=== PATIENT | male | born 1980 | race Caucasian/White ===

== ENCOUNTER 2016-07-30 09:28 | Emergency (ER) | payer BC ==
--- NOTE | 2016-07-30 09:38 | EDM.PDOC ---
<Sherrell Madrigal - Last Filed: 07/30/16 10:24> ED HPI Trauma - General Chief Complaint: Lower Extremity Injury/Pain Stated Complaint: RIGHT ANKLE PAIN Time Seen by Provider: 07/30/16 09:30 - History of Present Illness INITIAL COMMENTS - FREE TEXT/NARRATIVE: This is Dr. Madrigal dictating an addendum note as a supervising physician on this case. I agree with history and physical as above. The patient is awake alert and not exhibiting any signs of intoxication or tremulousness. He does admit that he has been drinking heavily but did not drink this morning. I agree with the physical as above and there is a lot of dependent ecchymosis and diffuse soft tissue swelling in this region of the lateral malleolus. Neurovascular is intact in the proximal fibula and tibia are intact without tenderness. The patient is exhibiting no signs of tremulousness. We will followup the x-ray and treat appropriately. X-rays have been reviewed and were discussed with the patient. You'll receive an orthopod and crutches and recommend strongly to followup in the orthopedics clinic as elevation and pain meds. Impression: Right ankle injury/sprain rule out occult fracture Allergies/ADRs: Allergies No Known Allergies Allergy (Verified 07/30/16 09:30) Home Medications: Ambulatory Orders Hydrocodone/Acetaminophen [[place] 5-325 Tablet] 1 each PO Q4H PRN #30 tablet Ibuprofen 800 mg PO TID #30 tablet 07/30/16 Course - Vital Signs Last Recorded V/S: Last Vital Signs Temp 97.5 F 07/30/16 09:30 Pulse 93 07/30/16 09:30 Resp 16 07/30/16 09:30 BP 138/88 07/30/16 09:30 Pulse Ox 99 07/30/16 09:30 - Orders/Labs/Meds Orders: Active Orders 24 hr Category Date Time Status DME for Discharge [COMM] Stat Oth 07/30/16 10:20 Ordered Departure - Departure Disposition: Home, Self-Care 01 Clinical Impression: Right ankle injury Prescriptions: Hydrocodone/Acetaminophen [[place] 5-325 Tablet] 1 each PO Q4H PRN #30 tablet PRN Reason: Pain Ibuprofen 800 mg PO TID #30 tablet Instructions: Crutch Use, [id number] Referrals: PCP,None [Primary Care Provider] - Forms: ED Department Discharge Additional Instructions: The following information is given to patients seen in the emergency department who are being discharged to home. This information is to outline your options for follow-up care. We provide all patients seen in our emergency department with a follow-up referral. The need for follow-up, as well as the timing and circumstances, are variable depending upon the specifics of your emergency department visit. If you don't have a primary care physician on staff, we will provide you with a referral. We always advise you to contact your personal physician following an emergency department visit to inform them of the circumstance of the visit and for follow-up with them and/or the need for any referrals to a consulting specialist. The emergency department will also refer you to a specialist when appropriate. This referral assures that you have the opportunity for follow-up care with a specialist. All of these measure are taken in an effort to provide you with optimal care, which includes your follow-up. Under all circumstances we always encourage you to contact your private physician who remains a resource for coordinating your care. When calling for follow-up care, please make the office aware that this follow-up is from your recent emergency room visit. If for any reason you are refused follow-up, please contact the [facility] Emergency Department at and asked to speak to the emergency department charge nurse. - My Orders Last 24 Hours: My Active Orders 07/30/16 10:20 DME for Discharge [COMM] Stat - Assessment/Plan Last 24 Hours: My Active Orders 07/30/16 10:20 DME for Discharge [COMM] Stat <Penny Oropeza - Last Filed: 07/30/16 10:29> ED HPI Trauma - History of Present Illness INITIAL COMMENTS - FREE TEXT/NARRATIVE: History of present illness: [35yo male with injury to his right ankle and foot 3 days ago. He does not recall the mechanism of his injury. He was drinking heavily and he was going down the stairs fast and twisted his ankle. He did not fall and did not have other injuries. Has noticed next day moderate swelling pain and decreased range of motion. He is able to walk on it but has difficulty. He has been icing it frequently. He has been drinking past four days due to relationship problems. He does smoke cigarettes when drinking. He smokes marijuana socially. He does not have past medical or surgical history. ] Review of systems: As per history of present illness and below otherwise all systems reviewed and negative. Past medical history: As per history of present illness and as reviewed below otherwise noncontributory. Surgical history: As per history of present illness and as reviewed below otherwise noncontributory. Social history: No reported history of drug or alcohol abuse. Family history: As per history of present illness and as reviewed below otherwise noncontributory. Physical exam: General: Well developed, well nourished in NAD HEENT: Atraumatic, normocephalic, pupils reactive, negative for conjunctival pallor or scleral icterus, mucous membranes moist, throat clear, neck supple, nontender, trachea midline. Lungs: Clear to auscultation, breath sounds equal bilaterally, chest nontender. Heart: S1S2, regular, negative for clicks, rubs, or JVD. Abdomen: Soft, nondistended, nontender. Pelvis: Stable nontender. Genitourinary: Deferred. Rectal: Deferred. Extremities: Right ankle and foot: There is moderate swelling, ecchymosis and tenderness on the lateral malleolus. There is diffuse swelling and ecchymosis of the right foot. No erythema, abrasion, warmth or open lesions. Left foot and ankle unremarkable. positive dorsalis pedis pulses bilaterally. Neurovasc. intact. Neuro: Awake, alert, oriented. Cranial nerves II through XII unremarkable. Cerebellum unremarkable. Motor and sensory unremarkable throughout. Exam nonfocal. Diagnostics: [Right ankle and foot x-ray] Therapeutics: [Patient declined Toradol shot] Impression: [Right ankle injury/sprain] Plan: [ortho boot and crutches Rx ibuprofen and norco prn SPENCER follow up with ortho.] Definitive disposition and diagnosis as appropriate pending reevaluation and review of above. Review of Systems - Review of Systems Review Of Systems: See Below (History of present illness) Trauma Exam - Physical Exam Exam: See Below (The history of present illness) Course - Vital Signs Last Recorded V/S: Last Vital Signs Temp 97.5 F 07/30/16 09:30 Pulse 93 07/30/16 09:30 Resp 16 07/30/16 09:30 BP 138/88 07/30/16 09:30 Pulse Ox 99 07/30/16 09:30 - Orders/Labs/Meds Orders: Active Orders 24 hr Category Date Time Status DME for Discharge [COMM] Stat Oth 07/30/16 10:20 Ordered Departure - Departure Time of Disposition: 10:25 Condition: good - My Orders Last 24 Hours: My Active Orders 07/30/16 10:20 DME for Discharge [COMM] Stat - Assessment/Plan Last 24 Hours: My Active Orders 07/30/16 10:20 DME for Discharge [COMM] Stat
--- NOTE | 2016-07-30 10:15 | CR ---
EXAMINATION: Right foot and right ankle HISTORY: Pain COMPARISON: None TECHNIQUE: 3 views of the right ankle and 2 views of the right foot. FINDINGS: There is a small defect along the anterior aspect of the tibial plafond, this appears lianne icated and may represent an old injury. There is also a vague lucency along the posterior aspect of the distal fibula, incomplete to the cortex, likely artifactual. Otherwise no acute osseous abnormal ity identified. Moderate soft tissue swelling is noted overlying the lateral malleolus. There is min imal hallux valgus noted. IMPRESSION: 1. Small defect along the anterior tibial plafond, possibly an old injury. 2. Moderate soft tissue swelling overlying the lateral malleolus.
[2016-07-30 10:53] VITALS: BP 130/80
== END 2016-07-30 10:40 | disposition home or self-care (01) ==
LOC: MW.ED 09:28
DX: S90.01XA Contusion of right ankle, initial encounter (principal); X50.0XXA Overexertion from strenuous movement or load, initial encounter
CPT/HCPCS: 73610-26-RT; 73610-RT; 73620-26-RT; 73620-RT; 99283

== ENCOUNTER → 2016-08-28 | Outpatient (CLI) | payer BC | LOC: MW.CHFP 11:00 | PROVIDERS: ATTEND Physician Assistant | DX: J02.9 Acute pharyngitis, unspecified (principal) | CPT/HCPCS: 87081; 87880 ==

== ENCOUNTER 2019-01-15 04:08 | Emergency (ER) | payer SELFPAY ==
--- NOTE | 2019-01-15 04:17 | EDM.PDOC ---
ED HPI GENERAL MEDICAL PROBLEM - General Chief Complaint: Headache Stated Complaint: PERSISTENT HEADACHE Time Seen by Provider: 01/15/19 04:17 Source of Information: Reports: Patient - History of Present Illness INITIAL COMMENTS - FREE TEXT/NARRATIVE: HISTORY AND PHYSICAL: History of present illness: [Patient presents with persistent headache, he does have history of migraine consistent with usual migraine right unilateral with light sensitivity noise sensitivity and mild nausea No fever vomiting chills sweats no chest pain shortness breath dizziness palpitation about a urine symptoms he also has a rash extending from central forehead on the right side consistent with shingles no ocular involvement, vesicular rash in a dermatomal distribution ] Initially seen at [facility] and provided Imitrex with no relief he presents as such Review of systems: As per history of present illness and below otherwise all systems reviewed and negative. Past medical history: As per history of present illness and as reviewed below otherwise noncontributory. Surgical history: As per history of present illness and as reviewed below otherwise noncontributory. Social history: No reported history of drug or alcohol abuse. Family history: As per history of present illness and as reviewed below otherwise noncontributory. Physical exam: HEENT: Atraumatic, normocephalic, pupils reactive, negative for conjunctival pallor or scleral icterus, mucous membranes moist, throat clear, neck supple, nontender, trachea midline. Lungs: Clear to auscultation, breath sounds equal bilaterally, chest nontender. Heart: S1S2, regular, negative for clicks, rubs, or JVD. Abdomen: Soft, nondistended, nontender. Negative for masses or hepatosplenomegaly. Negative for costovertebral tenderness. Pelvis: Stable nontender. Genitourinary: Deferred. Rectal: Deferred. Extremities: Atraumatic, negative for cords or calf pain. Neurovascular unremarkable. Neuro: Awake, alert, oriented. Cranial nerves II through XII unremarkable. Cerebellum unremarkable. Motor and sensory unremarkable throughout. Exam nonfocal. Diagnostics: [CBC CMP UA Head CT no contrast] Therapeutics: [Normal saline Ativan Benadryl Toradol Acyclovir Horner ] Impression: [ headache shingles] Definitive disposition and diagnosis as appropriate pending reevaluation and review of above. Headache Pain Score (Numeric/FACES): 10 - Related Data Allergies Allergy/AdvReac Type Severity Reaction Status Date / Time No Known Allergies Allergy Verified 01/15/19 04:17 Home Meds: Home Meds SUMAtriptan Succinate [Imitrex] 25 mg PO ASDIRECTED 01/15/19 [History] Past Medical History Cardiovascular History: Reports: None Respiratory History: Reports: None Neurological History: Reports: None - Infectious Disease History Infectious Disease History: Reports: Chicken Pox - Past Surgical History HEENT Surgical History: Reports: Adenoidectomy Neurological Surgical History: Reports: None Social & Family History - Family History Family Medical History: Noncontributory ED ROS GENERAL - Review of Systems Review Of Systems: See Below ED EXAM, GENERAL - Physical Exam Exam: See Below Course - Vital Signs Last Recorded V/S: Last Vital Signs Temp 97.3 F 01/15/19 04:18 Pulse 99 01/15/19 04:18 Resp 19 01/15/19 04:18 BP 146/107 H 01/15/19 04:18 Pulse Ox 100 01/15/19 04:18 - Orders/Labs/Meds Labs: Laboratory Tests 01/15/19 01/15/19 01/15/19 Range/Units 04:39 04:39 05:51 WBC 8.35 (4.0-11.0) K/uL RBC 5.08 (4.50-5.90) M/uL Hgb 16.3 (13.0-17.0) g/dL Hct 46.6 (38.0-50.0) % MCV 91.7 (80.0-98.0) fL MCH 32.1 H (27.0-32.0) pg MCHC 35.0 (31.0-37.0) g/dL RDW Std Deviation 42.7 (28.0-62.0) fl RDW Coeff of Shayla 13 (11.0-15.0) % Plt Count 195 (150-400) K/uL MPV 11.00 (7.40-12.00) fL Neut % (Auto) 49.7 (48.0-80.0) % Lymph % (Auto) 36.5 (16.0-40.0) % [place] % (Auto) 10.9 (0.0-15.0) % Eos % (Auto) 2.2 (0.0-7.0) % Baso % (Auto) 0.7 (0.0-1.5) % Neut # (Auto) 4.2 (1.4-5.7) K/uL Lymph # (Auto) 3.1 H (0.6-2.4) K/uL Rice # (Auto) 0.9 H (0.0-0.8) K/uL Eos # (Auto) 0.2 (0.0-0.7) K/uL Baso # (Auto) 0.1 (0.0-0.1) K/uL Nucleated RBC % 0.0 /100WBC Nucleated RBCs # 0 K/uL Sodium 141 (136-148) mmol/L Potassium 3.9 (3.5-5.1) mmol/L Chloride 104 (98-107) mmol/L Carbon Dioxide 23.4 (21.0-32.0) mmol/L BUN 16 (7.0-18.0) mg/dL Creatinine 1.3 (0.8-1.3) mg/dL Est Cr Clr Drug Dosing 86.22 mL/min Estimated GFR (MDRD) > 60.0 ml/min Glucose 104 (74-106) mg/dL Calcium 9.3 (8.5-10.1) mg/dL Total Bilirubin 0.6 (0.2-1.0) mg/dL AST 21 (15-37) IU/L ALT 58 (14-63) IU/L Alkaline Phosphatase 56 (46-116) U/L Total Protein 6.7 (6.4-8.2) g/dL Albumin 3.5 (3.4-5.0) g/dL Globulin 3.2 (2.6-4.0) g/dL Albumin/Globulin Ratio 1.1 (0.9-1.6) Urine Color YELLOW Urine Appearance CLEAR Urine pH 5.5 (5.0-8.0) Ur Specific [place] 1.010 (1.001-1.035) Urine Protein NEGATIVE (NEGATIVE) mg/dL Urine Glucose (UA) NEGATIVE (NEGATIVE) mg/dL Urine Ketones NEGATIVE (NEGATIVE) mg/dL Urine Occult Blood NEGATIVE (NEGATIVE) Urine Nitrite NEGATIVE (NEGATIVE) Urine Bilirubin NEGATIVE (NEGATIVE) Urine Urobilinogen 0.2 (<2.0) EU/dL Ur Leukocyte Esterase NEGATIVE (NEGATIVE) Meds: Medications Discontinued Medications Generic Name Dose Route Start Last Admin Trade Name Freq PRN Reason Stop Dose Admin Diphenhydramine HCl 50 mg 01/15/19 04:53 01/15/19 05:28 Benadryl IVPUSH 01/15/19 04:54 50 mg ONETIME ONE Administration Sodium Chloride 1,000 mls @ 999 mls/hr 01/15/19 04:32 01/15/19 04:40 Normal Saline IV 01/15/19 05:32 999 mls/hr STAT ONE Administration Ketorolac Tromethamine 30 mg 01/15/19 04:32 01/15/19 04:39 Toradol IVPUSH 01/15/19 04:33 30 mg ONETIME ONE Administration Lorazepam 1 mg 01/15/19 04:52 01/15/19 05:27 Ativan IVPUSH 01/15/19 04:53 1 mg ONETIME ONE Administration Departure - Departure Time of Disposition: 06:33 Disposition: Home, Self-Care 01 Condition: Good Clinical Impression: Headache, Shingles - Discharge Information Referrals: PCP,None [Primary Care Provider] - Forms: ED Department Discharge Additional Instructions: The following information is given to patients seen in the emergency department who are being discharged to home. This information is to outline your options for follow-up care. We provide all patients seen in our emergency department with a follow-up referral. The need for follow-up, as well as the timing and circumstances, are variable depending upon the specifics of your emergency department visit. If you don't have a primary care physician on staff, we will provide you with a referral. We always advise you to contact your personal physician following an emergency department visit to inform them of the circumstance of the visit and for follow-up with them and/or the need for any referrals to a consulting specialist. The emergency department will also refer you to a specialist when appropriate. This referral assures that you have the opportunity for follow-up care with a specialist. All of these measure are taken in an effort to provide you with optimal care, which includes your follow-up. Under all circumstances we always encourage you to contact your private physician who remains a resource for coordinating your care. When calling for follow-up care, please make the office aware that this follow-up is from your recent emergency room visit. If for any reason you are refused follow-up, please contact the [facility] emergency department at and asked to speak to the emergency department charge nurse.
[2019-01-15] MEDS ORDERED: Sodium Chloride 0.9% 1,000 ML IV ONE (04:32)
[2019-01-15] MEDS ORDERED: Ketorolac 30 MG/ML SDV IVPUSH ONE (04:32)
[2019-01-15] MEDS ORDERED: LORazepam 2 MG/ML SDV IVPUSH ONE (04:52)
[2019-01-15] MEDS ORDERED: diphenhydrAMINE 50 MG/ML SDV IVPUSH ONE (04:53)
[2019-01-15 05:13] LABS: BLOOD UREA NITROGEN,BUN 16 mg/dL (7.0-18.0); CARBON DIOXIDE,CO2 23.4 mmol/L (21.0-32.0); CHLORIDE,CL 104 mmol/L (98-107); GLUCOSE RANDOM 104 mg/dL (74-106); POTASSIUM,K 3.9 mmol/L (3.5-5.1); SODIUM,NA 141 mmol/L (136-148)
--- NOTE | 2019-01-15 06:29 | CT ---
INDICATION: Headaches. TECHNIQUE: CT of the head without contrast. Coronal and sagittal reformats are included. COMPARISON: None. FINDINGS: No acute intracranial hemorrhage. No mass effect or midline shift. No hydrocephalus or extra-axial collections. White matter is within normal limits for age. No acute osseous abnormalities. Mild thinning of the left parietal bone, which could reflect sequelae of remote trauma versus unilateral parietal osteodystrophy. Hyperostosis frontalis. Mastoid air cells and paranasal sinuses are clear. Normal soft tissues. IMPRESSION: IMPRESSION: 1. No acute intracranial abnormalities. Please note that all CT scans at this facility use dose modulation, iterative reconstruction, and/or weight-based dosing when appropriate to reduce radiation dose to as low as reasonably achievable. Dictated by Emanuel Atkinson MD @ Jan 15 2019 9:25AM Signed by Dr. Emanuel Atkinson @ Jan 15 2019 9:29AM
[2019-01-15] MEDS ORDERED: Meperidine PF 25 MG/ML Syringe IVPUSH ONE (06:37)
[2019-01-15 10:44] VITALS: BP 144/96
== END 2019-01-15 08:32 | disposition home or self-care (01) ==
LOC: MW.ED 04:08
DX: B02.9 Zoster without complications (principal)
CPT/HCPCS: 36415; 70450; 80053; 81003; 85025; 96361; 96374; 96375; 99284; J1200; J1885; J2060; J2175; J7040; 99282

== ENCOUNTER 2023-10-10 09:22 | Emergency (ER) | payer BC ==
[2023-10-10] MEDS: Sodium Chloride 0.9% 10 ML Syringe FLUSH PRN (09:36)
[2023-10-10] MEDS: Sodium Chloride 0.9% 2.5 ML Syringe FLUSH PRN (09:36)
[2023-10-10 09:39] LABS: BASOPHILS ABSOLUTE AUTO 0.07 K/uL (0.00-0.20); BASOPHILS PERCENT AUTO 0.9 % (0.0-1.0); EOSINOPHILS ABSOLUTE AUTO 0.06 K/uL (0.00-0.45); EOSINOPHILS PERCENT AUTO 0.8 % (0.0-6.0); HEMOGLOBIN 17.9 g/dL (14.0-18.0); IMMATURE GRAN ABSOLUTE AUTO 0.02 K/uL (0.00-0.05); IMMATURE GRAN PERCENT AUTO 0.3 % (0.0-0.4); LYMPHOCYTES ABSOLUTE AUTO 2.02 K/uL (1.00-4.80); MEAN CORPUSCULAR HEMOGLOBIN 34.4 pg (28.0-32.0); MEAN CORPUSCULAR HGB CONC 36.5 g/dL (32.0-36.0); MEAN PLATELET VOLUME 10.4 fL (9.4-12.4); MONOCYTES PERCENT AUTO 9.4 % (0.0-8.0); NEUTROPHILS PERCENT AUTO 61.6 % (41.0-71.0); PLATELET COUNT,PLT 180 K/uL (150-400); RED BLOOD CELL COUNT 5.21 M/uL (4.52-5.90); WHITE BLOOD CELL COUNT,WBC 7.47 K/uL (3.9-11.3)
[2023-10-10 10:10] LABS: ALBUMIN 3.8 g/dL (3.4-5.0); BILIRUBIN TOTAL 0.7 mg/dL (0.2-1.0); CALCIUM 9.1 mg/dL (8.5-10.1); CARBON DIOXIDE,CO2 22.5 mmol/L (21.0-32.0); CREATININE 1.4 mg/dL (0.8-1.3); EST CRCL DRUG DOSING (CG) 76.98 mL/min; PROTEIN TOTAL,TP 7.6 g/dL (6.4-8.2)
[2023-10-10 12:34] VITALS: BP 148/91; PULSE 87
== END 2023-10-10 12:33 | disposition home or self-care (01) ==
LOC: MW.ED 09:22
DX: R07.89 Other chest pain (principal); Z75.8 Other problems related to medical facilities and other health care; Z86.19 Personal history of other infectious and parasitic diseases
CPT/HCPCS: 36415; 71045; 80053; 83690; 84484; 85025; 85379; 93005; 99285; J3490; 93010; 99282

== ENCOUNTER 2025-04-21 17:07 | Emergency (ER) | payer BC ==
[2025-04-21] MEDS: ceFAZolin 1 GM in Water For Injection, Sterile 10 ML IVPUSH ONE (17:35)
[2025-04-21] MEDS: Ondansetron 4 MG/2 ML SDV IVPUSH ONE (17:36)
[2025-04-21] MEDS: Diphtheria,Pertussis(Acell),Tetanus Vaccine 0.5 ML Syringe IM ONE (17:36)
[2025-04-21 17:46] LABS: BASOPHILS ABSOLUTE AUTO 0.07 K/uL (0.00-0.20); BASOPHILS PERCENT AUTO 1.0 % (0.0-1.0); EOSINOPHILS ABSOLUTE AUTO 0.14 K/uL (0.00-0.45); EOSINOPHILS PERCENT AUTO 1.9 % (0.0-6.0); IMMATURE GRAN ABSOLUTE AUTO 0.03 K/uL (0.00-0.05); IMMATURE GRAN PERCENT AUTO 0.4 % (0.0-0.4); LYMPHOCYTES ABSOLUTE AUTO 2.33 K/uL (1.00-4.80); LYMPHOCYTES PERCENT AUTO 32.4 % (24.0-44.0); MEAN PLATELET VOLUME 10.8 fL (9.4-12.4); MONOCYTES ABSOLUTE AUTO 0.89 K/uL (0.00-0.80); MONOCYTES PERCENT AUTO 12.4 % (0.0-8.0); NEUTROPHILS ABSOLUTE AUTO 3.73 K/uL (1.80-7.70); NEUTROPHILS PERCENT AUTO 51.9 % (41.0-71.0); NRBC ABSOLUTE 0.00 K/uL (0.00-0.02); NRBC PERCENT 0.0 /100WBC (0.0-0.2); PLATELET COUNT,PLT 179 K/uL (150-400); RED BLOOD CELL COUNT 4.93 M/uL (4.52-5.90); WHITE BLOOD CELL COUNT,WBC 7.19 K/uL (3.9-11.3)
[2025-04-21 18:12] LABS: A/G RATIO 1.2 (0.9-1.6); ALANINE AMINOTRANSFERASE,ALT 469.0 IU/L (14-63); ASPARTATE AMNIOTRANSFERASE,AST 338.0 IU/L (15-37); BILIRUBIN TOTAL 0.9 mg/dL (0.2-1.0); BLOOD UREA NITROGEN,BUN 16.0 mg/dL (7.0-18.0); CARBON DIOXIDE,CO2 23.7 mmol/L (21.0-32.0); CHLORIDE,CL 104.0 mmol/L (98-107); CREATININE 1.2 mg/dL (0.8-1.3); EST CRCL DRUG DOSING (CG) 88.02 mL/min; GLUCOSE RANDOM 127.0 mg/dL (74-106); POTASSIUM,K 4.3 mmol/L (3.5-5.1); PROTEIN TOTAL,TP 7.1 g/dL (6.4-8.2); SODIUM,NA 141.0 mmol/L (136-148)
[2025-04-21 18:13] LABS: ESTIMATED GFR 77.0 mL/min (>60)
[2025-04-21 18:47] VITALS: PULSE 112
[2025-04-21 19:13] VITALS: BP 170/108
== END 2025-04-21 20:10 | disposition home or self-care (01) ==
LOC: MW.ED 17:07
DX: S68.122A Partial traumatic metacarpophalangeal amputation of right middle finger, initial encounter (principal); I10 Essential (primary) hypertension; F17.200 Nicotine dependence, unspecified, uncomplicated; K21.9 Gastro-esophageal reflux disease without esophagitis; Z23 Encounter for immunization; Z79.899 Other long term (current) drug therapy; W23.1XXA Caught, crushed, jammed, or pinched between stationary objects, initial encounter; Y93.89 Activity, other specified
CPT/HCPCS: 36415; 73140; 80053; 85025; 90471; 90715; 96361; 96374; 96375; 96376; 99283; J0690; J1171; J2405; J7030; 99284